=== PATIENT | female | born 2000 | race Caucasian/White ===

== ENCOUNTER 2018-01-30 13:52 | Emergency (ER) | payer OTHER ==
[~2018-01-30] VITALS: Ht 160 cm; Wt 53.1 kg
[2018-01-30] MEDS ORDERED: birth control (15:37)
[2018-01-30 15:42] LABS: BILIRUBIN,URINE NEGATIVE (NEGATIVE); CLARITY,URINE CLEAR; COLOR,URINE YELLOW; GLUCOSE, URINE (UA) NEGATIVE (NEGATIVE); KETONES,URINE 3+ (NEGATIVE); LEUKOCYTE ESTERASE ,URINE 1+ (NEGATIVE); NITRITE,URINE NEGATIVE (NEGATIVE); PH,URINE 6 (5-9); PROTEIN,URINE 2+ (NEGATIVE); UROBILINOGEN,URINE 1 MG/DL (NORMAL)
[2018-01-30 15:54] LABS: BACTERIA,URINE NEGATIVE /HPF
[2018-01-30] MEDS ORDERED: NS IV 1000 ML 1,000 ML IV SCH (15:56)
[2018-01-30 15:57] LABS: BASOPHILS % (AUTO) 0 % (0-10); EOSINOPHILS % (AUTO) 0 % (0-10); HEMATOCRIT 42 % (35-52); HEMOGLOBIN 14.8 G/DL (11.5-16.0); LYMPHOCYTES # (AUTO) 0.5 X 10^3 (1.0-4.0); LYMPHOCYTES % (AUTO) 4 % (12-44); MEAN CORPUSCULAR HEMOGLOBIN 29 PG (25-34); MEAN CORPUSCULAR HGB CONC 35 G/DL (32-36); MEAN CORPUSCULAR VOLUME 83 FL (80-99); MONOCYTES % (AUTO) 8 % (0-12); NEUTROPHILS # (AUTO) 11.3 X 10^3 (1.8-7.8); NEUTROPHILS % (AUTO) 88 % (42-75); PLATELET COUNT 265 10^3/uL (130-400); RED BLOOD COUNT 5.07 10^6/uL (4.35-5.85); WHITE BLOOD COUNT 12.8 10^3/uL (4.3-11.0)
[2018-01-30 16:19] LABS: ALANINE AMINOTRANSFERASE 13 U/L (0-55); ALBUMIN 4.7 GM/DL (3.2-4.5); ALKALINE PHOSPHATASE 79 U/L (40-136); BILIRUBIN,TOTAL 2.4 MG/DL (0.1-1.0); BUN/CREATININE RATIO 14; CARBON DIOXIDE 20 MMOL/L (21-32); CHLORIDE 105 MMOL/L (98-107); CREATININE SERUM 0.81 MG/DL (0.60-1.30); GFR ESTIMATED > 60; GLUCOSE 97 MG/DL (70-105); POTASSIUM 3.6 MMOL/L (3.6-5.0); SODIUM 138 MMOL/L (135-145); TOTAL PROTEIN 7.1 GM/DL (6.4-8.2)
[2018-01-30 16:20] LABS: BAND NEUTROPHILS 1 %; BASOPHILS % (MANUAL) 0 %; EOSINOPHILS % (MANUAL) 0 %; LYMPHOCYTES % (MANUAL) 4 %; MONOCYTES % (MANUAL) 9 %; NEUTROPHILS % (MANUAL) 86 %; RBC MORPH NORMAL
--- NOTE | 2018-01-30 16:28 | ED GI ---
General Chief Complaint: Abdominal/GI Problems Stated Complaint: PAIN ALL OVER, SICK Nursing Triage Note: Patient advises she awoke at 0830 and began vomiting. She advises she has vomitted several times and complains of left and right lower abdominal pain. History of Present Illness Date Seen by Provider: January 30, 2018 Time Seen by Provider: 16:00 Initial Comments 17-year-old female presents for vomiting. She reports 3 episodes of vomiting today with the last one being at 1300. She has only had sips of water today. She denies any GI symptoms yesterday, she did have 2-3 alcohol beverages last evening but came home with a friend and had no symptoms of acute alcohol intoxication at that time. She's had no previous GI complaints and no history of abdominal surgeries. She denies any symptoms of a UTI. Timing/Duration: 4-6 Hours Severity/Quality: Mild Location: Flank, Generalized Abdomen Radiation: No Radiation Associated Symptoms: Denies Symptoms Allergies and Home Medications Allergies Coded Allergies: No Known Drug Allergies (Unverified , 01/30/18) Home Medications Ondansetron 8 Mg Tab.rapdis, 8 MG PO Q6H PRN for NAUSEA/VOMITING-1ST LINE Prescribed by: ROMAN GARCIA on 01/30/18 0257 Patient Home Medication List Home Medication List Reviewed: Yes Review of Systems Constitutional: no symptoms reported, see HPI Gastrointestinal: See HPI, Nausea, Poor Appetite, Vomiting Genitourinary: See HPI; Denies Discharge, Denies Frequency; Flank Pain; Denies Hematuria, Denies Pain, Denies Urgency Musculoskeletal: see HPI, joint pain (generalized) All Other Systems Reviewed Negative Unless Noted: Yes Past Fhwjuag-Ospiqd-Gncdmq Hx Past Med/Social Hx: Reviewed Nursing Past Med/Soc Hx Patient Social History Alcohol Use: Occasionally Uses Recreational Drug Use: No Smoking Status: Never a Smoker Recent Foreign Travel: No Contact w/Someone Who Travel: No Recent Infectious Disease Expo: No Recent Hopitalizations: No Physical Abuse: No Sexual Abuse: No Seasonal Allergies Seasonal Allergies: No Past Medical History Surgeries: Yes Eye Surgery Respiratory: No Cardiac: No Neurological: No Genitourinary: No Gastrointestinal: No Musculoskeletal: No Endocrine: No HEENT: No Cancer: No Psychosocial: No Nursing Suicide Risk Score: 0 Integumentary: No Blood Disorders: No Physical Exam Vital Signs Vital Signs - First Documented 01/30/18 01/30/18 15:31 17:28 Temp 99.5 Pulse 113 Resp 16 B/P (MAP) 120/80 Pulse Ox 98 O2 Delivery Room Air Capillary Refill : General Appearance: WD/WN, no apparent distress HEENT: PERRL/EOMI, normal ENT inspection, TMs normal, pharynx normal, other ( oromucosa pink and moist) Neck: non-tender, full range of motion, supple, normal inspection Respiratory: chest non-tender, lungs clear, normal breath sounds Cardiovascular: normal peripheral pulses, regular rate, rhythm, no murmur Gastrointestinal: normal bowel sounds, soft; No guarding, No rebound; tenderness (generalized) Extremities: normal range of motion, non-tender, normal capillary refill Back: CVA tenderness (R), CVA tenderness (L) Neurologic/Psychiatric: no motor/sensory deficits, alert, normal mood/affect, oriented x 3 Skin: normal color, warm/dry Progress/Results/Core Measures Results/Orders Lab Results Laboratory Tests Test 01/30/18 15:21 01/30/18 15:50 Range/Units Urine Color YELLOW Urine Clarity CLEAR Urine pH 6 5-9 Urine Specific Imbler 1.020 1.016-1.022 Urine Protein 2+ H NEGATIVE Urine Glucose (UA) NEGATIVE NEGATIVE Urine Ketones 3+ H NEGATIVE Urine Nitrite NEGATIVE NEGATIVE Urine Bilirubin NEGATIVE NEGATIVE Urine Urobilinogen 1 NORMAL MG/DL Urine Leukocyte Esterase 1+ H NEGATIVE Urine RBC (Auto) NEGATIVE NEGATIVE Urine RBC NONE /HPF Urine WBC 2-5 /HPF Urine Squamous Epithelial Cells 2-5 /HPF Urine Crystals NONE /LPF Urine Bacteria NEGATIVE /HPF Urine Casts NONE /LPF Urine Mucus LARGE H /LPF Urine Culture Indicated NO White Blood Count 12.8 H 4.3-11.0 10^3/uL Red Blood Count 5.07 4.35-5.85 10^6/uL Hemoglobin 14.8 11.5-16.0 G/DL Hematocrit 42 35-52 % Mean Corpuscular Volume 83 80-99 FL Mean Corpuscular Hemoglobin 29 25-34 PG Mean Corpuscular Hemoglobin Concent 35 32-36 G/DL Red Cell Distribution Width 13.0 10.0-14.5 % Platelet Count 265 130-400 10^3/uL Mean Platelet Volume 9.0 7.4-10.4 FL Neutrophils (%) (Auto) 88 H 42-75 % Lymphocytes (%) (Auto) 4 L 12-44 % Monocytes (%) (Auto) 8 0-12 % Eosinophils (%) (Auto) 0 0-10 % Basophils (%) (Auto) 0 0-10 % Neutrophils # (Auto) 11.3 H 1.8-7.8 X 10^3 Lymphocytes # (Auto) 0.5 L 1.0-4.0 X 10^3 Monocytes # (Auto) 1.0 0.0-1.0 X 10^3 Eosinophils # (Auto) 0.0 0.0-0.3 10^3/uL Basophils # (Auto) 0.0 0.0-0.1 10^3/uL Neutrophils % (Manual) 86 % Lymphocytes % (Manual) 4 % Monocytes % (Manual) 9 % Eosinophils % (Manual) 0 % Basophils % (Manual) 0 % Band Neutrophils 1 % Blood Morphology Comment NORMAL Sodium Level 138 135-145 MMOL/L Potassium Level 3.6 3.6-5.0 MMOL/L Chloride Level 105 98-107 MMOL/L Carbon Dioxide Level 20 L 21-32 MMOL/L Anion Gap 13 5-14 MMOL/L Blood Urea Nitrogen 11 7-18 MG/DL Creatinine 0.81 0.60-1.30 MG/DL Estimat Glomerular Filtration Rate > 60 BUN/Creatinine Ratio 14 Glucose Level 97 70-105 MG/DL Calcium Level 10.0 8.5-10.1 MG/DL Total Bilirubin 2.4 H 0.1-1.0 MG/DL Aspartate Amino Transf (AST/SGOT) 21 5-34 U/L Alanine Aminotransferase (ALT/SGPT) 13 0-55 U/L Alkaline Phosphatase 79 40-136 U/L Total Protein 7.1 6.4-8.2 GM/DL Albumin 4.7 H 3.2-4.5 GM/DL Micro Results Microbiology 01/30/18 Influenza Types A,B Antigen (KAROLINE) - Final, Complete My Orders Orders - ROMAN GARCIA Cbc With Automated Diff (01/30/18 15:37) Comprehensive Metabolic Panel (01/30/18 15:37) Ua Culture If Indicated (01/30/18 15:37) Urine Bedside (01/30/18 15:37) Saline Lock/Iv-Start (01/30/18 15:56) Ns Iv 1000 Ml (Sodium Chloride 0.9%) (01/30/18 15:56) Manual Differential (01/30/18 15:50) Influenza A And B Antigens (01/30/18 16:09) Acetaminophen Tablet/Caplet (Tylenol T (01/30/18 17:13) Vital Signs/I&O 01/30/18 01/30/18 15:31 17:28 Temp 99.5 Pulse 113 101 Resp 16 16 B/P (MAP) 120/80 Pulse Ox 98 O2 Delivery Room Air Room Air Urine -Bedside: Negative Progress Progress Note : Time: 16:00 Progress Note Initial evaluation completed, will obtain UA, urine hCG and labs. 1700 no further abdominal pain and no nausea since admission. Abdominal exam continues to be nontender, with negative rebound negative Cummins sign. We'll try oral Pedialyte and Tylenol 650 mg for generalized discomfort. 1715 discharge planning and return precautions discussed with the patient. All questions answered. Departure Impression Primary Impression: Nausea and vomiting Qualified Codes: G43.A1 - Cyclical vomiting, intractable Disposition: HOME, SELF-CARE Condition: Improved Departure-Patient Inst. Decision time for Depature: 17:15 Referrals: [facility] (PCP/Family) Primary Care Physician Patient Instructions: Nausea and Vomiting, Adult (DC) Add. Discharge Instructions: Use Zofran every 6-8 hours as needed for nausea or vomiting. Clear liquid diet for the next 6 hours and then bland food as tolerated. You may take Tylenol 650 mg or ibuprofen 600 mg alternating every 4 hours for pain or fever Follow-up at the [facility] tomorrow if your symptoms are not improving or worsen. Return to emergency department if symptoms significantly worsen, vomiting not improved with Zofran, fever greater than 101 not relieved by ibuprofen or Tylenol, or new urgent health care problems. All discharge instructions reviewed with patient and/or family. Voiced understanding. Scripts Ondansetron (Zofran Odt) 8 Mg Tab.rapdis 8 MG PO Q6H PRN for NAUSEA/VOMITING-1ST LINE, #4 TAB 0 Refills Prov: ROMAN GARCIA 01/30/18 Copy Copies To 1: ANDIE AGRAWAL MD, AMY ARNP January 30, 2018 16:28
[2018-01-30] MEDS ORDERED: ACETAMINOPHEN 325 MG TABLET/CAPLET (TYLENOL) PO STA (17:13)
[2018-01-30] MEDS ORDERED: ONDA8TAB9 PO (17:17)
== END 2018-01-30 17:56 | disposition home or self-care (01) ==
LOC: ER 13:56
DX: R11.2 Nausea with vomiting, unspecified (principal)
CPT/HCPCS: 36415; 80053; 81000; 84703; 85007; 85027; 87804; 96360